=== PATIENT | male | born 2000 | race Caucasian/White ===

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

== ENCOUNTER 2018-01-02 11:58 | Emergency (ER) | payer OTHER, MEDICAID, SELFPAY ==
[2018-01-02 11:58] VITALS: BP 126/85; PULSE 110; RESP 16; TEMP 36.7; O2SAT 97; BMI 22.2
[2018-01-02] MEDS: Morphine 4 MG/ML Syringe IV (13:52)
[2018-01-02] MEDS: Ondansetron 4 MG/2 ML Vial IV (13:52)
[2018-01-02] MEDS: 0.9% Normal Saline 1,000 ML 999 ML IV ×3 (13:52→15:45)
[2018-01-02 13:55] LABS: Absolute Lymphocyte Count 1.58 X10^3/ul (0.83-4.51); Absolute Neutrophil Count 9.6 X10^3/uL (2.0-7.7); Basophil# 0.01 X10^3/uL; Basophil% 0.1 % (0-1); Eosinophil# 0.04 X10^3/uL; Eosinophils% 0.3 % (0-5); Hematocrit 46.2 % (40-54); Hemoglobin 15.3 g/dl (13.0-16.5); Lymphocyte # 1.58 X10^3/ul (4.0); Lymphocyte % 12.8 % (19-41); Mean Corp Hgb Conc 33.1 g/gl (32-36); Mean Corpuscular Hgb 26.8 pg (27.0-32.0); Mean Corpuscular Volume 81.1 fL (80-94); Mean Platelet Vol. 9.7 fl (6.2-12.0); Monocyte# 1.03 X10^3/uL; Monocyte% 8.4 % (0-10); Neutrophil # 9.62 X10^3/uL (2.7-7.7); Neutrophil % 78.2 % (47-70); POSITIVE COUNT NO; POSITIVE DIFFERENTIAL NO; POSITIVE MORPHOLOGY NO; Platelet Count 332 K/mm3 (150-450); RBC Distribution Width CV 13.4 % (11.6-14.6); RBC Distribution Width SD 39.6 fl (35.1-43.9); White Blood Count 12.3 K/mm3 (4.4-11.0)
[2018-01-02 14:02] LABS: Anion Gap 9 (5-15); BUN 13 mg/dL (7-18); BUN/Creat Ratio 12.3 RATIO (10-20); Calcium,Total 9.4 mg/dL (8.5-10.1); Chloride 97 mmol/L (98-107); Creatinine, Serum 1.06 mg/dL (0.70-1.30); EST Glomerular Filtration Rate 95 mL/min (>60); Est Glom Filt Rate - Afr Amer 115 mL/min (>60); Estimated Creatinine Clearance 117.96 ml/min; Glucose 88 mg/dL (74-106); Sodium Level 138 mmol/L (136-145)
--- NOTE | 2018-01-02 14:47 | ED.VISSUMM ---
- ER Visit Summary Date of Service: 01/02/18 Chief Complaint: Cannot take medicine History of Present Illness: The patient is a 17 M with nausea and vomiting. He is coughing up liquids and his medication at home. He is postop day 5 from a tonsillectomy. No fevers. No bleeding. No other issues. Physical Examination: Afebrile and vital signs unremarkable except for heart rate of 110. No acute distress but appears uncomfortable. HEENT exam unremarkable except for postoperative tonsillectomy changes. No bleeding noted. Airway intact. No stridor. Lungs clear. Heart regular. Skin appears normal. Test Results: White count 12.3 and chloride 97. Emergency Department Course and Treatment: Fluids, morphine, Zofran. On reevaluation he was resting comfortably. No vomiting or other symptoms. Patient was discussed with Dr. Lara. He advised that postop day 5 can be very painful and the risk of bleeding is high. Patient should be hydrated generously. I ordered an additional 2 L of fluids. Patient may be discharged after that if he has no further issues, bleeding, or any other problems. Treatment Plan: As above Disposition: Discharged Impression: 1. Nausea vomiting This note was generated with [employer] dictation software. It may contain incorrect words, spelling, and punctuation that were not noted in review of the chart prior to signing ED Disposition - Plan for ED Patient: Chief Complaint: Nausea/Vomiting Referrals: Catrachito Rios MD [Primary Care Provider] -
--- NOTE | 2018-01-02 14:50 | ED.DEP ---
ED Disposition - Plan for ED Patient: Chief Complaint: Nausea/Vomiting Instructions: ED Nausea Vomiting Referrals: Miguel Lara MD [STAFF PHYSICIAN] -
[2018-01-02 16:29] VITALS: BP 118/67; PULSE 105; RESP 18; O2SAT 99
== END 2018-01-02 16:30 | disposition home or self-care (01) ==
LOC: ED 13:38
PROVIDERS: Emergency Provider Emergency Medicine
DX: R11.2 Nausea with vomiting, unspecified (principal); E86.0 Dehydration; Z98.890 Other specified postprocedural states; Z72.0 Tobacco use
CPT/HCPCS: 80048; 85025; 96361; 96374; 96375; 99282; J7030; A4216; J2405

== ENCOUNTER 2021-02-07 10:18 | Emergency (ER) | payer SELFPAY ==
[2021-02-07 10:19] VITALS: BP 141/92; PULSE 105; RESP 16; TEMP 35.6; O2SAT 98; BMI 22.4
--- NOTE | 2021-02-07 10:44 | RAD_ITS ---
STUDY: X-RAY - MANDIBLE (COMPLETE) REASON FOR EXAM: Male, 20 years old. pain, disslocation TECHNIQUE: 2 view(s) of the mandible were obtained. COMPARISON: None. FINDINGS: Normal mandible. Normal visualized right temporomandibular joint. Normal visualized left temporomandibular joint. The remaining visualized osseous structures are normal. The soft tissue structures are unremarkable. RAD/Mandible Less Than 4 Views IMPRESSION: Normal x-ray examination of the mandible. Electronically Signed: Ryan Ramos MD at 11:36 EST Tel , Service support ,
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
[2021-02-07] MEDS: Morphine 4 MG/ML Syringe IV (11:14)
[2021-02-07] MEDS: LORazepam 2 MG/ML Syringe 1 MG IV (11:15)
[2021-02-07] MEDS: Ondansetron 4 MG/2 ML Vial IV (11:15)
[2021-02-07] MEDS: 0.9% Normal Saline 1,000 ML 150 ML IV (11:19)
[2021-02-07 12:20] VITALS: BP 129/88; PULSE 86; RESP 16
[2021-02-07] MEDS: diazePAM 2 MG Tablet 4 MG PO (12:21)
--- NOTE | 2021-02-07 13:38 | CT_ITS ---
STUDY: CT FACIAL BONES WITHOUT CONTRAST REASON FOR EXAM: Male, 20 years old. concert for jaw dislocation RADIATION DOSAGE (If Supplied By Facility): CTDIvol = ( 29.38 ) mGy, DLP = ( 657.65 ) mGycm TECHNIQUE: The patient was scanned in a multi detector CT scanner. Sagittal and coronal images were reconstructed. Individualized dose optimization techniques were used for this CT. COMPARISON: None. FINDINGS: There is anterior dislocation of the mandibular heads bilaterally from the temporal mandibular joint fossa. (For example image 53 series 2). There is no facial fracture. The paranasal sinuses are clear. CT/Sinus/Facial Bone IMPRESSION: Anterior dislocation of the bilateral mandibular heads from the temporomandibular joint fossa. Electronically Signed: Garcia Mena MD at 14:40 EST Tel , Service support ,
[2021-02-07 15:05] VITALS: BP 132/87; BP 145/84; PULSE 71; PULSE 96; RESP 14; RESP 20; O2SAT 100; O2SAT 99
[2021-02-07] MEDS: Propofol 200 MG/20 ML Vial IV BOLUS (15:15)
[2021-02-07 15:25] VITALS: BP 133/75; PULSE 74; RESP 18; O2SAT 99
[2021-02-07 15:40] VITALS: BP 119/73; PULSE 82; RESP 14; O2SAT 96
[2021-02-07 15:50] VITALS: BP 131/87; PULSE 76; RESP 15; O2SAT 99
== END 2021-02-07 16:00 | disposition home or self-care (01) ==
PROVIDERS: Emergency Provider Emergency Medicine
DX: S03.03XA Dislocation of jaw, bilateral, initial encounter (principal); X58.XXXA Exposure to other specified factors, initial encounter; Y93.9 Activity, unspecified; Y92.9 Unspecified place or not applicable; Y99.9 Unspecified external cause status; F17.210 Nicotine dependence, cigarettes, uncomplicated
CPT/HCPCS: 21480; 70100; 70486; 96374; 96375; 99283; J7030; J2405

== ENCOUNTER 2021-06-04 06:34 | Emergency (ER) | payer SELFPAY ==
[2021-06-04 06:35] VITALS: BP 149/87; PULSE 94; RESP 16; TEMP 35.9; O2SAT 99; BMI 25.1
--- NOTE | 2021-06-04 06:47 | CT_ITS ---
EXAM: CT Lumbar Spine Without Intravenous Contrast CLINICAL INDICATION: 21 years old, Male; trauma. pain TECHNIQUE: Helically acquired images were obtained of the lumbar spine without intravenous contrast. 2D reformats were reviewed. This CT exam was performed using one or more of the following dose reduction techniques: automated exposure control, adjustment of the mA and/or kV according to patient size, and/or use of iterative reconstruction technique. This report was created using [employer] report generation technology. RADIATION DOSE: CTDIvol = 14.85 mGy, DLP = 472.47 mGy-cm COMPARISON: None. FINDINGS: Vertebrae: Unremarkable. No fracture. No traumatic subluxation. No discrete lytic or blastic abnormality. Normal alignment. Discs/spinal canal/neural foramina: Unremarkable. Disc heights are preserved. No critical stenosis. Vasculature: Visualized abdominal aorta is not dilated. Lymph nodes: Unremarkable. No retroperitoneal adenopathy. CT/Spine Lumbar without Contrast IMPRESSION: No evidence of acute lumbar spinal fracture or spondylolisthesis. Electronically Signed: Kian Painter MD at 7:19 EDT ,
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
== END 2021-06-04 07:44 | disposition home or self-care (01) ==
PROVIDERS: Emergency Provider Emergency Medicine; Visit Provider Emergency Medicine
DX: M54.50 Low back pain, unspecified (principal); W11.XXXA Fall on and from ladder, initial encounter; Y92.008 Other place in unspecified non-institutional (private) residence as the place of occurrence of the external cause; F17.210 Nicotine dependence, cigarettes, uncomplicated
CPT/HCPCS: 72131; 99282

== ENCOUNTER 2021-11-03 05:40 | Observation (INO) | payer MEDICAID, SELFPAY ==
[2021-11-03 05:41] VITALS: BP 140/78; PULSE 64; RESP 17; TEMP 36.4; O2SAT 97; BMI 25.9
--- NOTE | 2021-11-03 05:53 | CT_ITS ---
EXAM: CT abdomen and pelvis without contrast HISTORY: Kidney Stone TECHNIQUE: No intravenous contrast. A radiation dose optimization technique was used for this scan. COMPARISON: None. LIMITATIONS: None. LOWER CHEST: Normal. LIVER: Normal. GALLBLADDER: Normal. BILE DUCTS: Normal. PANCREAS: Normal. SPLEEN: Normal. ADRENAL GLANDS: Normal. KIDNEYS/URETERS/BLADDER: Normal. AORTA: Normal caliber. BOWEL/MESENTERY: Diverticula are without evidence of diverticulitis. No small bowel obstruction. Possible wall thickening of the distal stomach. APPENDIX: Normal. PERITONEUM: Normal. REPRODUCTIVE ORGANS: Normal. BONES/SOFT TISSUES: No acute fracture. OTHER: None. CONCLUSION: No urinary stones or hydronephrosis. Possible wall thickening of the distal stomach. Query gastritis. Electronically Signed: Jaime Fatima MD at 6:55 EDT , CT/Abdomen/Pelvis without Cont IMPRESSION: undefined
--- NOTE | 2021-11-03 05:54 | EDS_ITS ---
HPI History of Present Illness Chief Complaint: Nausea/Vomiting Informant: patient Narrative Narrative: Presents with constant pain left side abdomen for the last 3 days. Nausea and vomiting for the past 2 days. Unable to keep things down. No bowel movement since Monday. No abdominal surgeries in the past. No history of kidney stones. No urinary symptoms. He does admit to smoking marijuana daily since he was 10 years old. Never had emesis before with marijuana. Reports drinks alcohol every other week. He did drink Monday night. Prior similar symptoms: No PFSH PFSH Medical History Encounter for screening for COVID-19 Home Medications NK 02/07/21 [History Last Taken Unknown] Allergy/AdvReac Type Severity Reaction Status Date / Time meperidine [From Demerol] Allergy Hives Verified 06/04/21 06:37 Surgical History Hx of tonsillectomy Social History Smoking Status: Current every day smoker tobacco type: cigarettes alcohol intake: current alcohol intake frequency: a few times a month Alcohol type: beer ROS ROS ED Constitutional Constitutional ED: Denies chills, fever(s) or sweats Eyes Eyes: Denies change in vision ENT ENT ED: Denies dysphagia or sore throat Cardiovascular Cardiovascular: Denies chest pain, leg edema, palpitations or racing heartbeat Respiratory/Chest Respiratory/Chest: Denies cough, dyspnea or dyspnea on exertion Gastrointestinal Gastrointestinal: Reports abdominal pain, nausea and vomiting; Denies diarrhea Genitourinary Genitourinary ED: Denies dysuria, hematuria or urinary frequency Musculoskeletal Musculoskeletal: Denies back pain, extremity pain or neck pain Integumentary Denies rash or wounds Neurologic Neurologic: Denies headache(s), paresthesias or weakness EXAM Physical Exam Const Vital Signs: 11/03/21 05:41 Temperature 97.6 F L Temperature Source Temporal Pulse Rate 64 Respiratory Rate 17 Blood Pressure 140/78 H Blood Pressure Mean 98 Pulse Ox 97 Oxygen Delivery Method Room Air Positive well nourished and well developed Constitutional Narrative: Nontoxic, mild uncomfortable. General Appearance ED: well developed HEENT Reports moist mucous membranes normocephalic and atraumatic Eyes PERRL, EOMs intact bilaterally and conjunctivae normal General Eye ED: Yes normal appearance of both eyes Neck no lymphadenopathy and supple General: Negative for tenderness Chest Wall Chest: Negative for tenderness Resp normal respiratory effort and normal air movement Effort and Inspection: symmetric chest movement; Negative for respiratory distress Cardio regular rate, regular rhythm and no murmurs Peripheral Pulses: pulses 2+ throughout GI normal to inspection, nondistended, normoactive bowel sounds GI Narrative: Negative Kline's or McBurney's tenderness. Palpation: Negative for guarding or rebound tenderness present Back/Spine no thoracic nor lumbar tenderness Back/Spine Narrative: Left flank tenderness no rash or ecchymosis. Extremity normal to inspection General Extremety ED: Negative for edema or tenderness General Extremity: Negative for edema Neuro oriented x3 and no sensory deficits noted Sensorium / Orientation: awake and alert Skin no rashes or lesions noted and no wounds MDM MDM MDM Narrative Medical decision making narrative: Patient mild uncomfortable tender left side abdomen without guarding or rebound. Abdominal labs were checked, white count 13.3 lipase 859 with normal liver enzymes. Creatinine 1.19. Was given IV fluids morphine and Zofran initially. Still was retching. CT scan significant only for possible thickening gastrum concerning for gastritis. He was given Pepcid and Haldol due to the vomiting. Tox screen was added turning opiates cocaine and THC. He was given morphine prior to urine collection. Labs noting pancreatitis, multiple possible etiology at this time due to drinking alcohol the day before, had had multiple vomiting since yesterday because reactive elevation of his lipase. However with his intr actable symptoms, do feel he will benefit from admission. I spoke with hospitalist Dr. Guillen for admission. Lab Data Attestation: I reviewed the patient's lab results. Labs: Laboratory Results - last 24 hr 11/03/21 11/03/21 11/03/21 05:53 05:53 05:53 WBC 13.3 H RBC 5.55 Hgb 15.0 Hct 46.0 MCV 82.9 MCH 27.0 MCHC 32.6 RDW Std Deviation 40.6 RDW Coeff of [place] 13.4 Plt Count 438 MPV 9.6 Immature Gran % (Auto) 0.300 Neut % (Auto) 73.2 H Lymph % (Auto) 17.6 L [place] % (Auto) 7.3 Eos % (Auto) 1.4 Baso % (Auto) 0.2 Absolute Neuts (auto) 9.7 H Absolute Lymphs (auto) 2.34 Nucleated RBC % 0 Sodium 139 Potassium 3.4 L Chloride 96 L Carbon Dioxide 34.0 H Anion Gap 9 BUN 16 Creatinine 1.19 Estim Creat Clear Calc 109.11 Est GFR (MDRD) Af Amer 97 Est GFR (MDRD) Non-Af 80 BUN/Creatinine Ratio 13.4 Glucose 107 H Calcium 9.3 Total Bilirubin 0.60 Direct Bilirubin 0.13 AST 13 L ALT 33 Alkaline Phosphatase 87 Total Protein 7.9 Albumin 4.1 Globulin 3.8 Lipase 859 H Urine Color Urine Clarity Urine pH Ur Specific [place] Urine Protein Urine Glucose (UA) Urine Ketones Urine Occult Blood Urine Nitrite Urine Bilirubin Urine Urobilinogen Ur Leukocyte Esterase Urine RBC Urine WBC Ur Squamous Epith Cells Urine Bacteria Urine Mucus Urine Opiates Screen Urine Methadone Screen Ur Barbiturates Screen Ur Phencyclidine Scrn Ur Amphetamines Screen MDMA (Ecstasy) Screen U Benzodiazepines Scrn Urine Cocaine Screen U Cannabinoids Screen Ur Drug Screen Comment 11/03/21 11/03/21 06:30 06:30 WBC RBC Hgb Hct MCV MCH MCHC RDW Std Deviation RDW Coeff of [place] Plt Count MPV Immature Gran % (Auto) Neut % (Auto) Lymph % (Auto) [place] % (Auto) Eos % (Auto) Baso % (Auto) Absolute Neuts (auto) Absolute Lymphs (auto) Nucleated RBC % Sodium Potassium Chloride Carbon Dioxide Anion Gap BUN Creatinine Estim Creat Clear Calc Est GFR (MDRD) Af Amer Est GFR (MDRD) Non-Af BUN/Creatinine Ratio Glucose Calcium Total Bilirubin Direct Bilirubin AST ALT Alkaline Phosphatase Total Protein Albumin Globulin Lipase Urine Color Yellow Urine Clarity Clear Urine pH 7.0 Ur Specific [place] 1.010 Urine Protein 15 H Urine Glucose (UA) Normal Urine Ketones Negative Urine Occult Blood Negative Urine Nitrite Negative Urine Bilirubin Negative Urine Urobilinogen 1 H Ur Leukocyte Esterase 25 H Urine RBC 0-5 SEEN Urine WBC 0 SEEN Ur Squamous Epith Cells 0 SEEN Urine Bacteria 1+ Urine Mucus 2+ Urine Opiates Screen POSITIVE H Urine Methadone Screen NEGATIVE Ur Barbiturates Screen NEGATIVE Ur Phencyclidine Scrn NEGATIVE Ur Amphetamines Screen NEGATIVE MDMA (Ecstasy) Screen NEGATIVE U Benzodiazepines Scrn NEGATIVE Urine Cocaine Screen POSITIVE H U Cannabinoids Screen POSITIVE H Ur Drug Screen Comment Radiography Diagnostic Testing: Clinical Impression(s) from Imaging Studies Abdomen/Pelvis CT 11/03/21 05:53 IMPRESSION: undefined Discharge Plan Dx/Rx/DC Orders Clinical Impression: Intractable nausea and vomiting, Polysubstance use disorder, Abdominal pain, Serum lipase elevation Disposition Disposition: Acute Care Hospital [facility] Discharge Date/Time: 11/03/21 08:53
[2021-11-03] MEDS: Morphine 4 MG/ML Syringe IV (05:58)
[2021-11-03] MEDS: Ondansetron 4 MG/2 ML Vial IV (05:58)
[2021-11-03] MEDS: 0.9% Normal Saline 1,000 ML 250 ML IV (05:58)
[2021-11-03 05:59] LABS: Absolute Lymphocyte Count 2.34 X10^3/uL (0.83-4.51); Absolute Neutrophil Count 9.7 X10^3/uL (2.0-7.7); Basophil# 0.03 X10^3/uL; Basophil% 0.2 % (0-1); Eosinophil# 0.19 X10^3/uL; Eosinophils% 1.4 % (0-5); Lymphocyte # 2.34 X10^3/ul (0.83-4.51); Lymphocyte % 17.6 % (19-41); Mean Corp Hgb Conc 32.6 g/dL (32-36); Mean Corpuscular Volume 82.9 fL (80-94); Mean Platelet Vol. 9.6 fl (6.2-12.0); Monocyte# 0.97 X10^3/uL; Monocyte% 7.3 % (0-10); NRBC Flagged by Analyzer 0 % (0-5); Neutrophil # 9.69 X10^3/uL (2.7-7.7); Neutrophil % 73.2 % (47-70); Platelet Count 438 K/mm3 (150-450); RBC Distribution Width CV 13.4 % (11.6-14.6); RBC Distribution Width SD 40.6 fl (35.1-43.9); Red Blood Count 5.55 M/mm3 (4.6-6.2); White Blood Count 13.3 K/mm3 (4.4-11.0)
[2021-11-03 06:36] LABS: Squamous Epithelial Cells - UA 0 SEEN /hpf (0-5); White Blood Cells 0 SEEN /hpf (0-5)
[2021-11-03 06:38] LABS: Anion Gap 9 (5-15); BUN 16 mg/dL (7-18); BUN/Creat Ratio 13.4 RATIO (10-20); Calcium,Total 9.3 mg/dL (8.5-10.1); Chloride 96 mmol/L (98-107); Creatinine, Serum 1.19 mg/dL (0.70-1.30); EST Glomerular Filtration Rate 80 mL/min (>60); Est Glom Filt Rate - Afr Amer 97 mL/min (>60); Estimated Creatinine Clearance 109.11 ml/min; Glucose 107 mg/dL (74-106); Lipase 859 U/L (73-393); Potassium 3.4 mmol/L (3.5-5.1); Sodium Level 139 mmol/L (136-145)
[2021-11-03 06:42] LABS: Color, Urine Yellow (Yellow); Glucose, Dipstick Normal (Normal); Ketone-Dipstick Negative (Negative); Leukocyte Esterase-Dipstick 25 /ul (Negative); Nitrite-Dipstick Negative (Negative); Occult Blood-Urine Negative /ul (Negative); Protein-Dipstick 15 mg/dl (Negative); Urine Bilirubin Dipstick Negative (Negative); Urine Clarity Clear (Clear); Urine Urobilinogen 1 mg/dl (Normal)
[2021-11-03 06:44] LABS: AST(SGOT) 13 U/L (15-37); Alanine Aminotransfer ALT/SGPT 33 U/L (16-61); Albumin, Serum 4.1 g/dL (3.2-5.0); Alkaline Phosphatase 87 U/L (45-117); Bilirubin, Direct 0.13 mg/dL (0.00-0.30); Globulin 3.8 g/dL (2.2-4.2); Protein, Total 7.9 g/dL (6.4-8.2)
[2021-11-03 06:47] LABS: Bacteria 1+ /hpf (None Seen); Mucous, Urine 2+ /hpf (<or=2+); Red Blood Cells-Urine 0-5 SEEN /hpf (0-5)
[2021-11-03] MEDS: Famotidine 200 MG/20 ML MDV 20 MG in 0.9% Normal Saline (Pres. free 8 ML 300 MG IV (07:27)
[2021-11-03] MEDS: Haloperidol Lactate 5 MG/ML Vial 2 MG IV (07:28)
--- NOTE | 2021-11-03 07:28 | NURSING ---
dr kadi marley
--- NOTE | 2021-11-03 07:35 | NURSING ---
MED SURG OBS [place] INTRACTABLE VOMITING, ABB PAIN
[2021-11-03 08:01] LABS: Amphetamine Urine VISTA NEGATIVE (<1000 ng/mL); Barbiturate Urine VISTA NEGATIVE (< 200 ng/mL); Benzodiazepine Urine VISTA NEGATIVE (< 200 ng/mL); Cocaine Urine VISTA POSITIVE (< 300 ng/mL); Ecstacy Urine VISTA NEGATIVE (< 500 ng/mL); Methadone Urine VISTA NEGATIVE (< 300 ng/mL); PCP Urine VISTA NEGATIVE (< 25 ng/mL); THC Urine VISTA POSITIVE (< 50 ng/mL); Vista UDS pH Range 9
[2021-11-03 08:52] VITALS: BP 140/78; PULSE 64; RESP 17; TEMP 36.4; O2SAT 97
[2021-11-03 09:09] VITALS: BMI 25.2
[2021-11-03 09:13] VITALS: BP 116/72; PULSE 76; RESP 18; TEMP 36.8; O2SAT 98
--- NOTE | 2021-11-03 09:16 | HP.PCM.HOS_ITS ---
HPI - General General Date of Admission: 11/03/21 HPI Narrative JOSHUA ALCALA, is a 21 M who presents to the hospital significant nausea and vomiting. He states that he has been having some nausea and vomiting for the last several days, he does smoke marijuana daily and his urine drug test did come back positive for cocaine as well as opiates. This is likely significant reaction to his significant drug use. CT of his abdomen and pelvis is unremarkable. Lipase is a little bit elevated but there is no corresponding change to his pancreas on the CT scan. [facility] Medical History Encounter for screening for COVID-19 Home Medications NK 02/07/21 [History Last Taken Unknown] Allergy/AdvReac Type Severity Reaction Status Date / Time meperidine [From Demerol] Allergy Hives Verified 06/04/21 06:37 Family History no significant family his no significant family history Surgical History Hx of tonsillectomy Social History Smoking Status: Current every day smoker tobacco type: cigarettes alcohol intake: current alcohol intake frequency: a few times a month Alcohol type: beer ROS Constitutional Constitutional: Denies chills, fatigue, fever(s) or malaise Eyes Eyes: Denies blurry vision ENT HEENT: Denies headache(s) or nasal discharge Cardiovascular Cardiovascular: Denies chest pain, dyspnea on exertion or syncope Respiratory/Chest Respiratory/Chest: Denies cough, shortness of breath at rest or shortness of breath with exertion Gastrointestinal Gastrointestinal: Reports abdominal pain, nausea and vomiting; Denies constipation or diarrhea Genitourinary Genitourinary: Denies dysuria Neurologic Neurologic: Denies focal weakness, numbness or tremor(s) Psychiatric Psychiatric: Denies anxiety or depression Vital Signs Vital Signs Vital Signs: 11/03/21 05:41 11/03/21 08:52 Temperature 97.6 F L 97.6 F L Temperature Source Temporal Temporal Pulse Rate 64 64 Respiratory Rate 17 17 Blood Pressure 140/78 H 140/78 H Blood Pressure Mean 98 98 Pulse Ox 97 97 Oxygen Delivery Method Room Air Room Air Weight Weight: 196 lb 8 oz Body Mass Index (BMI) 25.2 Physical Exam Narrative General: Alert, Oriented x3, Cooperative, No apparent distress HEENT: Atraumatic, PERRLA, EOMI, Normocephalic Oral: Moist Mucosa Neck: Supple, No JVD Lungs: Clear to auscultation, Normal air movement, No rhonchi, No wheeze, No rales Cardiovascular: Regular rate, Regular Rhythm, Normal S1, Normal S2, No murmurs Abdomen: Soft, Non Tender, Non-Distended, No Hepato-splenomegaly Extremities: No edema, Capillary Refill Less than 3 Seconds Skin: No rashes, No breakdown Musculoskeletal: No Tenderness to Palpation of Joints or Extremities Neurological: Cranial nerves II-XII grossly intact, Motor Exam 5/5 strength throughout, Sensory exam intact to light touch and pain Psych/Mental Status: Normal Affect, Appropriate Results Lab / Micro Data Result Diagrams: 11/03/21 05:53 11/03/21 05:53 Labs: Laboratory Results - last 24 hr 11/03/21 05:53: Total Bilirubin 0.60, Direct Bilirubin 0.13, AST 13 L, ALT 33, Alkaline Phosphatase 87, Total Protein 7.9, Albumin 4.1, Globulin 3.8 11/03/21 05:53: WBC 13.3 H, RBC 5.55, Hgb 15.0, Hct 46.0, MCV 82.9, MCH 27.0, MCHC 32.6, RDW Std Deviation 40.6, RDW Coeff of Ebony 13.4, Plt Count 438, MPV 9.6, Immature Gran % (Auto) 0.300, Neut % (Auto) 73.2 H, Lymph % (Auto) 17.6 L, [place] % (Auto) 7.3, Eos % (Auto) 1.4, Baso % (Auto) 0.2, Absolute Neuts (auto) 9.7 H, Absolute Lymphs (auto) 2.34, Nucleated RBC % 0 11/03/21 05:53: Sodium 139, Potassium 3.4 L, Chloride 96 L, Carbon Dioxide 34.0 H, Anion Gap 9, BUN 16, Creatinine 1.19, Estim Creat Clear Calc 109.11, Est GFR (MDRD) Af Amer 97, Est GFR (MDRD) Non-Af 80, BUN/Creatinine Ratio 13.4, Glucose 107 H, Calcium 9.3, Lipase 859 H 11/03/21 06:30: Urine Color Yellow, Urine Clarity Clear, Urine pH 7.0, Ur Specific [place] 1.010, Urine Protein 15 H, Urine Glucose (UA) Normal, Urine Ketones Negative, Urine Occult Blood Negative, Urine Nitrite Negative, Urine Bilirubin Negative, Urine Urobilinogen 1 H, Ur Leukocyte Esterase 25 H, Urine RBC 0-5 SEEN, Urine WBC 0 SEEN, Ur Squamous Epith Cells 0 SEEN, Urine Bacteria 1+, Urine Mucus 2+ 11/03/21 06:30: Urine Opiates Screen POSITIVE H, Urine Methadone Screen NEGATIVE, Ur Barbiturates Screen NEGATIVE, Ur Phencyclidine Scrn NEGATIVE, Ur Am phetamines Screen NEGATIVE, MDMA (Ecstasy) Screen NEGATIVE, U Benzodiazepines Scrn NEGATIVE, Urine Cocaine Screen POSITIVE H, U Cannabinoids Screen POSITIVE H , Ur Drug Screen Comment Radiology Impression Abdomen/Pelvis CT 11/03/21 05:53 IMPRESSION: undefined Assessment & Plan Assessment/Plan (1) Intractable nausea and vomiting: PLAN: Plan 1. Intractable nausea and vomiting ? This is likely secondary to his marijuana use and other drug use ? We will provide him with IV fluids as well as antiemetics ? No diarrhea, hyperemesis from marijuana 2. Polysubstance abuse ? Urine drug test with cocaine, marijuana, opiates ? Discussed cessation DVT: Ambulation Charges/Coding Visit Charges OBSV E&M: 77737 Initial observation care L2
[2021-11-03] MEDS: 0.9% Normal Saline 1,000 ML 150 ML IV (09:29)
[2021-11-03] MEDS: Famotidine 20 MG Tablet PO (09:29)
[2021-11-03 14:06] VITALS: BP 114/62; PULSE 59; RESP 18; TEMP 37.2; O2SAT 98
--- NOTE | 2021-11-03 15:09 | DCINST_ITS ---
Discharge Instructions Diet Discharge Diet: [place] diet and Bananas, Rice, Applesauce and [place] Activity Discharge Activity: Return to Normal Activity Dressing / Incision Call your doctor if you observe: Fever of 101 or Higher, Shortness of breath, Dizziness, Fainting spells, Swelling in the ankles, Chest pain and Increased palpitations (irregular heartbeat) Follow Up Care Test Results: Test results from this visit will be discussed in further detail at your follow- up appointment, if applicable. Discharge Plan Admission Admit Date/Time: 11/03/21 07:29 Attending Provider: Thanh Guillen Primary Care Provider: Care Physician,Ros Primary Discharge Orders/Prescriptions Prescriptions: No Action NK Referrals / Follow Up: Care Physician,No Primary [Primary Care Provider] - Disposition Disposition (needs filled in before D/C Order can be placed): Home, Self Care
[2021-11-03 16:20] VITALS: BP 119/70; PULSE 63; RESP 16; TEMP 36.4; O2SAT 97
== END 2021-11-03 16:46 | disposition home or self-care (01) ==
LOC: ED 06:49 → MS3 08:36
PROVIDERS: Admitting Provider Family Medicine; Emergency Provider Emergency Medicine; Visit Provider Family Medicine
DX: R11.2 Nausea with vomiting, unspecified (principal); F14.10 Cocaine abuse, uncomplicated; F11.10 Opioid abuse, uncomplicated; F17.210 Nicotine dependence, cigarettes, uncomplicated; R74.8 Abnormal levels of other serum enzymes; R10.819 Abdominal tenderness, unspecified site; F12.10 Cannabis abuse, uncomplicated
CPT/HCPCS: 74176; 80048; 80076; 80307; 81001; 83690; 85025; 96361; 96374; 96375; 99218; 99284; 99406; J7030; A4216; G0378; J2405; J3490

== ENCOUNTER 2022-03-17 06:39 | Emergency (ER) | payer SELFPAY ==
[2022-03-17 06:40] VITALS: BP 137/94; PULSE 95; RESP 16; TEMP 36.4; O2SAT 98; BMI 26.3
[2022-03-17] MEDS: 0.9% Normal Saline 1,000 ML 999 ML IV (07:26)
[2022-03-17] MEDS: Ondansetron 4 MG/2 ML Vial IV (07:27)
[2022-03-17] MEDS: Ketorolac 30 MG/ML Syringe IV (07:28)
[2022-03-17] MEDS: Diphenoxylate/Atrop 1 Tablet PO (07:29)
--- NOTE | 2022-03-17 07:29 | EX.ED.DYSGE1 ---
HPI History of Present Illness Chief Complaint: General Illness Narrative Narrative: Is a 2-year-old male with past medical history of of polysubstance abuse and reported pancreatitis. He states for the last 1 to 2 days he has felt nauseous and has had loose stool but this morning awoke with lower abdominal discomfort and 3-5 episodes of watery diarrhea. He denies any known sick contacts or any travel outside the country recent antibiotic use livestock exposure camping activities. He denies any known history of ulcer colitis or Crohn's disease. He states that he is concerned about dehydration based on the recurrent bouts of diarrhea as well as infection based on his worsening symptoms and therefore comes in for evaluation [facility] Medical History Encounter for screening for COVID-19 Polysubstance use disorder Home Medications diphenoxylate-atropine 2.5 mg-0.025 mg tablet (Lomotil) 1 tab PO 4X/DAY PRN PRN diarrhea 5 days #20 tabs 03/17/22 [Rx Last Taken Unknown] ondansetron 4 mg disintegrating tablet 4 mg PO TID PRN nausea and vomiting #21 tabs 03/17/22 [Rx Last Taken Unknown] Allergy/AdvReac Type Severity Reaction Status Date / Time meperidine [From Demerol] Allergy Hives Verified 03/17/22 06:43 Surgical History Hx of tonsillectomy Social History Smoking Status: Current every day smoker tobacco type: cigarettes alcohol intake: current alcohol intake frequency: a few times a month Alcohol type: beer ROS ROS ED Constitutional Constitutional ED: Denies chills or fever(s) ENT ENT ED: Denies sore throat Cardiovascular Cardiovascular: Denies chest pain Respiratory/Chest Respiratory/Chest: Denies cough or dyspnea Gastrointestinal Gastrointestinal: Reports abdominal pain, diarrhea and nausea; Denies vomiting Genitourinary Genitourinary ED: Denies dysuria or hematuria Musculoskeletal Musculoskeletal: Denies myalgias Integumentary Denies rash Neurologic Neurologic: Denies headache(s) Hematologic/Lymphatic Hematologic/Lymphatic: Denies easy bleeding or easy bruising EXAM Physical Exam Const Vital Signs: 03/17/22 06:40 03/17/22 06:41 Temperature 97.5 F L Temperature Source Temporal Pulse Rate 95 Respiratory Rate 16 Respiratory Effort Normal Non-Labored Respiratory Pattern Normal Blood Pressure 137/94 H Blood Pressure Mean 108 Pulse Ox 98 Oxygen Delivery Method Room Air Positive well nourished and well developed General Appearance ED: well developed HEENT HEENT Narrative: Mucous membranes are slightly dry and tacky but no secondary changes in the posterior pharynx to suggest infection Eyes PERRL and EOMs intact bilaterally General Eye ED: Negative for scleral icterus Neck supple Resp normal respiratory effort and clear to auscultation bilaterally Cardio regular rate and regular rhythm GI non-distended GI Narrative: Abdomen is soft and nondistended with hyperactive bowel sounds. There is mild pain on palpation in the left lower quadrant without voluntary guarding or rigidity Auscultation: hyperactive bowel sounds Palpation: soft Extremity normal to inspection Neuro oriented x3 and CN's II-XII intact bilaterally Sensorium / Orientation: alert Psych mental status grossly normal Skin no rashes or lesions noted and skin turgor normal General Skin Exam: Negative for jaundice MDM MDM MDM Narrative Medical decision making narrative: Patient presented to the ER afebrile with a soft nonsurgical abdomen. Therefore I felt no need for emergent CT scan. His constellation of symptoms of nausea with loose stool/diarrhea is most consistent with a viral stomach infection. I have low concern for COVID and influenza as a cause and therefore do not feel the need for viral swab. Also has patient has no known history of ulcer colitis or Crohn's disease I doubt a Crohn's flare is occurring at this time. Therefore patient will have basic blood work obtained to rule out underlying electrolyte derangement or acute kidney injury and be given 1 L of fluid as well as Lomotil to stop diarrhea and Toradol for pain. I feel this time that if labs revealed no clinically significant findings and after treatment patient should be safe for discharge as his symptoms indicate he has a viral stomach infection without systemic changes. Patient will be signed out to the day physician Dr. Fisher pending results of laboratory studies Lab Data Labs: Laboratory Results - last 24 hr 03/17/22 07:30 WBC 7.9 RBC 5.42 Hgb 14.5 Hct 44.6 MCV 82.3 MCH 26.8 L MCHC 32.5 RDW Std Deviation 39.5 RDW Coeff of Ebony 13.2 Plt Count 404 MPV 9.6 Immature Gran % (Auto) 0.300 Neut % (Auto) 68.1 Lymph % (Auto) 22.0 [place] % (Auto) 6.0 Eos % (Auto) 2.8 Baso % (Auto) 0.8 Absolute Neuts (auto) 5.4 Absolute Lymphs (auto) 1.75 Nucleated RBC % 0 Discharge Plan Triage Chief Complaint: General Illness ED Provider: Steven Nair Dx/Rx/DC Orders Clinical Impression: Diarrhea, Nausea, Mild dehydration Instructions: ED Gastroenteritis, Viral (Adult) Prescriptions: New ondansetron 4 mg tablet,disintegrating 4 mg PO TID PRN (Reason: nausea and vomiting) Qty: 21 0RF diphenoxylate-atropine [Lomotil] 2.5-0.025 mg tablet 1 tab PO 4X/DAY PRN PRN (Reason: diarrhea) 5 Days Qty: 20 0RF Primary Care Provider: Care Physician,No Primary Referrals: Tamy Reed MD [Med Staff - [employer]] - Care Physician,No Primary [Primary Care Provider] - Activity Restrictions/Additional Instructions: Please keep yourself well-hydrated and use the medication as directed to help control your symptoms. If you have any further concerns please return to the ER for repeat evaluation
[2022-03-17 07:44] LABS: Absolute Lymphocyte Count 1.75 X10^3/uL (0.83-4.51); Absolute Neutrophil Count 5.4 X10^3/uL (2.0-7.7); Basophil# 0.06 X10^3/uL; Basophil% 0.8 % (0-1); Eosinophil# 0.22 X10^3/uL; Eosinophils% 2.8 % (0-5); Hematocrit 44.6 % (40-54); Hemoglobin 14.5 g/dL (13.0-16.5); Lymphocyte # 1.75 X10^3/ul (0.83-4.51); Mean Corp Hgb Conc 32.5 g/dL (32-36); Mean Corpuscular Hgb 26.8 pg (27.0-32.0); Mean Corpuscular Volume 82.3 fL (80-94); Mean Platelet Vol. 9.6 fl (6.2-12.0); Monocyte# 0.48 X10^3/uL; NRBC Flagged by Analyzer 0 % (0-5); Neutrophil # 5.41 X10^3/uL (2.7-7.7); Neutrophil % 68.1 % (47-70); Platelet Count 404 K/mm3 (150-450); RBC Distribution Width CV 13.2 % (11.6-14.6); RBC Distribution Width SD 39.5 fl (35.1-43.9); Red Blood Count 5.42 M/mm3 (4.6-6.2); White Blood Count 7.9 K/mm3 (4.4-11.0)
[2022-03-17 08:00] LABS: AST(SGOT) 14 U/L (15-37); Alanine Aminotransfer ALT/SGPT 28 U/L (16-61); Albumin, Serum 3.9 g/dL (3.2-5.0); Alkaline Phosphatase 79 U/L (45-117); Anion Gap 4 (5-15); BUN 15 mg/dL (7-18); BUN/Creat Ratio 19.6 RATIO (10-20); Bilirubin, Direct 0.11 mg/dL (0.00-0.30); Chloride 109 mmol/L (98-107); Creatinine, Serum 0.76 mg/dL (0.70-1.30); EST Glomerular Filtration Rate 133 mL/min (>60); Est Glom Filt Rate - Afr Amer 161 mL/min (>60); Estimated Creatinine Clearance 169.38 ml/min; Globulin 3.1 g/dL (2.2-4.2); Glucose 112 mg/dL (74-106); Lipase 90 U/L (73-393); Magnesium 2.1 mg/dL (1.6-2.6); Potassium 4.2 mmol/L (3.5-5.1); Sodium Level 138 mmol/L (136-145)
[2022-03-17 08:15] VITALS: BP 124/63; PULSE 71; RESP 15; O2SAT 98
== END 2022-03-17 08:17 | disposition home or self-care (01) ==
PROVIDERS: Emergency Provider Emergency Medicine; Visit Provider Emergency Medicine
DX: R19.7 Diarrhea, unspecified (principal); E86.0 Dehydration; R11.0 Nausea; F17.210 Nicotine dependence, cigarettes, uncomplicated
CPT/HCPCS: 80048; 80076; 83690; 83735; 85025; 96361; 96374; 96375; 99283; J7030; J2405

== ENCOUNTER 2022-08-15 14:08 | Emergency (ER) | payer OTHER, SELFPAY ==
[2022-08-15 14:09] VITALS: BP 120/74; PULSE 96; RESP 16; TEMP 35; O2SAT 98; BMI 26.5
[2022-08-15 15:15] LABS: Absolute Lymphocyte Count 1.85 X10^3/uL (0.83-4.51); Absolute Neutrophil Count 6.9 X10^3/uL (2.0-7.7); Basophil# 0.04 X10^3/uL; Basophil% 0.4 % (0-1); Eosinophil# 0.24 X10^3/uL; Eosinophils% 2.5 % (0-5); Hematocrit 44.2 % (40-54); Hemoglobin 14.7 g/dL (13.0-16.5); Lymphocyte # 1.85 X10^3/ul (0.83-4.51); Mean Corp Hgb Conc 33.3 g/dL (32-36); Mean Corpuscular Hgb 26.8 pg (27.0-32.0); Mean Corpuscular Volume 80.5 fL (80-94); Mean Platelet Vol. 9.6 fl (6.2-12.0); Monocyte# 0.63 X10^3/uL; Monocyte% 6.5 % (0-10); NRBC Flagged by Analyzer 0 % (0-5); Neutrophil # 6.93 X10^3/uL (2.7-7.7); Neutrophil % 71.3 % (47-70); Platelet Count 397 K/mm3 (150-450); RBC Distribution Width CV 13.2 % (11.6-14.6); RBC Distribution Width SD 38.4 fl (35.1-43.9); Red Blood Count 5.49 M/mm3 (4.6-6.2); White Blood Count 9.7 K/mm3 (4.4-11.0)
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
[2022-08-15 15:18] LABS: Mucous, Urine 0 SEEN /hpf (<or=2+)
[2022-08-15 15:23] LABS: Color, Urine Yellow (Yellow); Glucose, Dipstick Normal (Normal); Ketone-Dipstick Negative (Negative); Leukocyte Esterase-Dipstick 500 /ul (Negative); Nitrite-Dipstick Negative (Negative); Occult Blood-Urine 10 /ul (Negative); Protein-Dipstick 30 mg/dl (Negative); Urine Bilirubin Dipstick Negative (Negative); Urine Clarity Clear (Clear); Urine Urobilinogen Normal (Normal)
--- NOTE | 2022-08-15 15:27 | CT_ITS ---
EXAM: CT ABDOMEN AND PELVIS WITHOUT INTRAVENOUS CONTRAST CLINICAL INDICATION: PAIN TECHNIQUE: Helically acquired images were obtained of the abdomen and pelvis without intravenous contrast. This CT exam was performed using one or more of the following dose reduction techniques: automated exposure control, adjustment of the mA and/or kV according to patient size, and/or use of iterative reconstruction technique. RADIATION DOSE: CTDIvol = 8.54 mGy, DLP = 510.15 mGy-cm COMPARISON: 9.7.22 FINDINGS: LOWER THORAX: Unremarkable. Lung bases are clear. No cardiomegaly. No significant pericardial effusion. ABDOMEN: LIVER: Unremarkable. Homogeneous. GALLBLADDER AND BILE DUCTS: Unremarkable. No calcified gallstones. No gallbladder distention or wall edema. No intra- or extrahepatic biliary ductal dilation. PANCREAS: Unremarkable. No focal cystic mass. SPLEEN: Unremarkable. Normal size without focal cystic or solid mass. ADRENALS: Unremarkable. No nodules. KIDNEYS AND URETERS: Unremarkable. Normal renal size and position. No hydronephrosis. STOMACH AND BOWEL: Unremarkable. No stomach or bowel distention. No focal inflammatory change. PELVIS: APPENDIX: The appendix is visualized and is normal. BLADDER: Unremarkable. REPRODUCTIVE: Unremarkable as visualized. No mass. ABDOMEN and PELVIS: INTRAPERITONEAL SPACE: Unremarkable. No ascites or other fluid collection. No free air. BONES/JOINTS: Unremarkable. No suspicious lytic or blastic abnormality. SOFT TISSUES: Umbilical hernia containing fat. VASCULATURE: Unremarkable. Abdominal aorta is non-dilated. LYMPH NODES: Unremarkable. No enlarged lymph nodes. CT/Abdomen/Pelvis without Cont IMPRESSION: No acute findings in the abdomen or pelvis. Electronically Signed: Baljinder Goetz MD at 16:16 EDT ,
[2022-08-15] MEDS: 0.9% Normal Saline 1,000 ML 1000 ML IV (15:40)
[2022-08-15] MEDS: Ketorolac 15 MG/ML Vial IV (15:40)
[2022-08-15] MEDS: Ondansetron 4 MG/2 ML Vial IV (15:40)
[2022-08-15 15:47] LABS: ALB/GLOB Ratio 1.1 RATIO (0.9-2.4); AST(SGOT) 20 U/L (15-37); Alanine Aminotransfer ALT/SGPT 41 U/L (16-61); Albumin, Serum 3.9 g/dL (3.2-5.0); Alkaline Phosphatase 101 U/L (45-117); Anion Gap 6 (5-15); BUN 11 mg/dL (7-18); BUN/Creat Ratio 10.7 RATIO (10-20); Calcium,Total 9.2 mg/dL (8.5-10.1); Chloride 106 mmol/L (98-107); Creatinine, Serum 1.03 mg/dL (0.70-1.30); EST Glomerular Filtration Rate 94 mL/min (>60); Est Glom Filt Rate - Afr Amer 114 mL/min (>60); Estimated Creatinine Clearance 124.98 ml/min; Globulin 3.7 g/dL (2.2-4.2); Glucose 99 mg/dL (74-106); Potassium 4.5 mmol/L (3.5-5.1); Protein, Total 7.6 g/dL (6.4-8.2); Sodium Level 138 mmol/L (136-145)
[2022-08-15 16:08] LABS: Bacteria RARE /hpf (None Seen); Red Blood Cells-Urine 0-5 SEEN /hpf (0-5); Squamous Epithelial Cells - UA 0-5 SEEN /hpf (0-5); White Blood Cells 10-25 SEEN /hpf (0-5)
== END 2022-08-15 17:53 | disposition home or self-care (01) ==
PROVIDERS: Emergency Provider Emergency Medicine; Visit Provider Emergency Medicine
DX: M54.9 Dorsalgia, unspecified (principal); R10.31 Right lower quadrant pain; R11.0 Nausea; G89.29 Other chronic pain; F17.210 Nicotine dependence, cigarettes, uncomplicated; Z79.899 Other long term (current) drug therapy
CPT/HCPCS: 74176; 80053; 81001; 85025; 87086; 87088; 96361; 96374; 96375; 99283; J7030; A4216; J2405

== ENCOUNTER 2022-12-03 22:06 | Emergency (ER) | payer SELFPAY ==
[2022-12-03 22:07] VITALS: BP 134/88; PULSE 82; RESP 15; TEMP 36.6; O2SAT 98; BMI 27.4
--- NOTE | 2022-12-03 22:14 | EX.ED.DYSGE1 ---
HPI History of Present Illness Chief Complaint: General Illness [facility] Medical History Abdominal pain Encounter for screening for COVID-19 Polysubstance use disorder Home Medications ondansetron 4 mg disintegrating tablet 4 mg PO Q8H PRN nausea and vomiting 3 days #9 tabs 12/03/22 [Rx Last Taken Unknown] Allergy/AdvReac Type Severity Reaction Status Date / Time meperidine [From Demerol] Allergy Hives Verified 12/03/22 22:10 Surgical History Hx of tonsillectomy Social History Smoking Status: Current every day smoker tobacco type: e-cigarettes alcohol intake: current alcohol intake frequency: a few times a month Alcohol type: beer EXAM Physical Exam Const Vital Signs: 12/03/22 22:07 12/03/22 22:20 Temperature 97.9 F Temperature Source Temporal Pulse Rate 82 Respiratory Rate 15 Respiratory Effort Normal Non-Labored Short of Breath Respiratory Pattern Normal Blood Pressure 134/88 H Blood Pressure Mean 103 Pulse Ox 98 Oxygen Delivery Method Room Air MDM MDM MDM Narrative Medical decision making narrative: HISTORY OF PRESENT ILLNESS: 22-year-old male here with nausea vomiting, diarrhea he notes body aches and decreased appetite. He further states he has had nausea vomiting and intermittent bouts of diarrhea for the last 4 to 5 days. No sick contacts. Denies any abdominal pain. Denies any urinary complaints. Last bowel was prior to arrival no melena or hematochezia noted. Notes vomiting earlier today. No nausea or vomiting at this time. No chest pain or shortness of breath noted. Notes associated fever and chills and feeling fatigued. REVIEW OF SYSTEMS: Pertinent positives: Nausea, vomiting, diarrhea, fever, chills Pertinent negatives: Chest pain, shortness of breath PHYSICAL EXAM: Nursing triage notes reviewed, Vital signs reviewed Constitutional: please see mdm HENT: MMM Eyes: Pupils equal round and reactive to light, Extraocular muscles intact Neck: No stridor, no JVD, full neck ROM Lungs: Clear to auscultation, No wheezing or rales. No increased work of breathing, no conversational dyspnea, no accessory muscle use, no nasal flaring. No respiratory distress noted Heart: Regular rate and rhythm, No murmurs, No rubs and No gallops, 2+ distal pulses (radial, femoral, posterior tibial) in all extremities Abdomen: Soft, there is no tenderness, rigidity, rebound or guarding, no obvious peritoneal signs, no palpable pulsatile abdominal masses, no auscultated abdominal bruit : No CVAT Extremities: No edema Neuro: No focal neurological deficits, cranial nerves II through XII intact, 5/5 strength in all extremities. Intact sensation to light touch in all extremities, 2+ reflexes bilateral patella tendons. Normal gait. No ataxia. Skin: No rash or lesions noted MEDICAL DECISION MAKING: Chief Complaint: Nausea vomiting, body aches External records reviewed: Outpatient records reviewed: Seen in September 2022 and diagnosed with gastroenteritis. Imaging reviewed: CT scan of the abdomen pelvis from July 2022 shows no acute findings Factors affecting care: Diarrhea Social determinants of health: Current day smoker, alcohol use History obtained from others: none Consults: none MDM Narrative: Patient was hemodynamically stable, afebrile, nontoxic-appearing. On exam was benign and not consistent with acute surgical process (perforation, obstruction, appendicitis). I did give 1 L normal saline, Zofran, Toradol and Pepcid for symptomatic relief. I considered the following differential diagnosis: Dehydration, viral illness such as COVID or flu, anemia, electrolyte disturbance, systemic inflammation, ERICK ALL IMAGES (IF OBTAINED) HAVE BEEN PERSONALLY REVIEWED AND INTERPRETED BY MYSELF. CBC without leukocytosis, severe anemia, no thrombocytopenia. BMP without evidence of significant electrolyte abnormalities, no anion gap, no acute kidney injury. LFTs show no evidence of hepatobiliary pathology. Lipase is wnl indicating no pancreatic inflammation. The amalgamation the patient's history, physical, lab work-up are NOT suggestive of a life-limiting process. Suspect the patient suffering from a viral illness. COVID and flu are pending. They have [facility] E care instructions. He is to return precautions and follow-up instructions as well. The patient and/or family, caregivers express understanding. The patient and/or family, caregivers agrees with the plan. Shared decision making: I will have a discussion with the patient and or visitors regarding risk/benefits of further testing or admission. They will be made aware of of the risk/benefits inherent in this decision they will be given the opportunity to voice understanding. Total critical care time today provided was at least 0 minutes. This excludes separately billable procedures. Critical care time (if documented) is secondary to the patient having high probability of clinically significant/life threatening deterioration in the patient's condition which required my urgent intervention. Impression: 1. Acute nausea and vomiting 2. Diarrhea Dispo: discharge Lab Data Labs: Laboratory Results - last 24 hr 12/03/22 22:55 WBC 10.0 RBC 5.23 Hgb 13.9 Hct 43.3 MCV 82.8 MCH 26.6 L MCHC 32.1 RDW Std Deviation 39.0 RDW Coeff of Ebony 13.0 Plt Count 406 MPV 9.8 Immature Gran % (Auto) 0.300 Neut % (Auto) 67.4 Lymph % (Auto) 24.2 [place] % (Auto) 6.4 Eos % (Auto) 1.3 Baso % (Auto) 0.4 Absolute Neuts (auto) 6.7 Absolute Lymphs (auto) 2.42 Nucleated RBC % 0 Sodium 139 Potassium 3.8 Chloride 106 Carbon Dioxide 28.0 Anion Gap 5 BUN 12 Creatinine 0.91 Estim Creat Clear Calc 145.53 Est GFR (MDRD) Af Amer 131 Est GFR (MDRD) Non-Af 109 BUN/Creatinine Ratio 13.2 Glucose 84 Calcium 9.1 Total Bilirubin 0.50 Direct Bilirubin 0.15 AST 17 ALT 28 Alkaline Phosphatase 72 Total Protein 7.2 Albumin 4.0 Globulin 3.2 Lipase 23 Discharge Plan Triage Chief Complaint: General Illness ED Provider: Florentino Bills Dx/Rx/DC Orders Instructions: ED Diet Vomiting Diarrhea Prescriptions: New ondansetron 4 mg tablet,disintegrating 4 mg PO Q8H PRN (Reason: nausea and vomiting) 3 Days Qty: 9 0RF Primary Care Provider: Care Physician,No Primary Referrals: Chico Busch MD [Med Staff - Medicinal Chemist] - Activity Restrictions/Additional Instructions: Thank you for trusting us with your care today! Please take Tylenol (2 pills, 650 mg), ibuprofen (2 pills, 400 mg) every 6 hours as needed for pain and fever control. Please take Zofran as needed for nausea and vomiting. Please return to the emergency department if your symptoms change or worsen. Please follow with your primary care physician for further outpatient evaluation and management. Disposition Disposition: Home, Self Care
[2022-12-03] MEDS: 0.9% Normal Saline (1000mL) 1,000 ML 1000 ML IV (22:56)
[2022-12-03] MEDS: Ketorolac 15 MG/ML Vial IV (22:56)
[2022-12-03] MEDS: Ondansetron 4 MG/2 ML Vial IV (22:57)
[2022-12-03 23:06] LABS: Absolute Lymphocyte Count 2.42 X10^3/uL (0.83-4.51); Absolute Neutrophil Count 6.7 X10^3/uL (2.0-7.7); Basophil# 0.04 X10^3/uL; Basophil% 0.4 % (0-1); Eosinophil# 0.13 X10^3/uL; Eosinophils% 1.3 % (0-5); Hematocrit 43.3 % (40-54); Hemoglobin 13.9 g/dL (13.0-16.5); Lymphocyte # 2.42 X10^3/ul (0.83-4.51); Lymphocyte % 24.2 % (19-41); Mean Corp Hgb Conc 32.1 g/dL (32-36); Mean Corpuscular Hgb 26.6 pg (27.0-32.0); Mean Corpuscular Volume 82.8 fL (80-94); Mean Platelet Vol. 9.8 fl (6.2-12.0); Monocyte# 0.64 X10^3/uL; Monocyte% 6.4 % (0-10); NRBC Flagged by Analyzer 0 % (0-5); Neutrophil # 6.72 X10^3/uL (2.7-7.7); Neutrophil % 67.4 % (47-70); Platelet Count 406 K/mm3 (150-450); Red Blood Count 5.23 M/mm3 (4.6-6.2)
[2022-12-03] MEDS: Famotidine 200 MG/20 ML MDV 20 MG in 0.9% Normal Saline (Pres. free 8 ML 300 MG IV (23:17)
[2022-12-03 23:24] LABS: AST(SGOT) 17 U/L (15-37); Alanine Aminotransfer ALT/SGPT 28 U/L (16-61); Alkaline Phosphatase 72 U/L (45-117); Anion Gap 5 (5-15); BUN 12 mg/dL (7-18); BUN/Creat Ratio 13.2 RATIO (10-20); Bilirubin, Direct 0.15 mg/dL (0.00-0.30); Calcium,Total 9.1 mg/dL (8.5-10.1); Chloride 106 mmol/L (98-107); Creatinine, Serum 0.91 mg/dL (0.70-1.30); EST Glomerular Filtration Rate 109 mL/min (>60); Est Glom Filt Rate - Afr Amer 131 mL/min (>60); Estimated Creatinine Clearance 145.53 ml/min; Globulin 3.2 g/dL (2.2-4.2); Glucose 84 mg/dL (74-106); Lipase 23 U/L (13-75); Potassium 3.8 mmol/L (3.5-5.1); Protein, Total 7.2 g/dL (6.4-8.2); Sodium Level 139 mmol/L (136-145)
== END 2022-12-03 23:49 | disposition home or self-care (01) ==
PROVIDERS: Emergency Provider Emergency Medicine; Visit Provider Emergency Medicine
DX: R11.2 Nausea with vomiting, unspecified (principal); R19.7 Diarrhea, unspecified; R50.9 Fever, unspecified; F17.290 Nicotine dependence, other tobacco product, uncomplicated
CPT/HCPCS: 80048; 80076; 83690; 85025; 87428; 96361; 96374; 96375; 99283; J7030; A4216; J2405; J3490

== ENCOUNTER 2023-01-10 12:12 | Emergency (ER) | payer SELFPAY ==
[2023-01-10 12:12] VITALS: BP 138/76; PULSE 91; RESP 14; TEMP 36.1; O2SAT 98; BMI 29.0
--- NOTE | 2023-01-10 12:22 | EX.ED.DYSGE1 ---
HPI <SANJEEV Warner - Last Filed: 01/10/23 12:25> History of Present Illness Chief Complaint: Cold Sx Narrative Narrative: 22-year-old male woke up with head pressure, congestion, cough and diarrhea. He tried to call out of work and he said he needed a doctor's note which is why he is here. He does not want any testing and CT take [id number] medications. He has no chest pain or shortness of breath. PFSH <SANJEEV Warner - Last Filed: 01/10/23 12:25> [facility] Medical History Abdominal pain Encounter for screening for COVID-19 Polysubstance use disorder Home Medications ondansetron 4 mg disintegrating tablet 4 mg PO Q8H PRN nausea and vomiting 3 days #9 tabs 12/03/22 [Rx Last Taken Unknown] Allergy/AdvReac Type Severity Reaction Status Date / Time meperidine [From Demerol] Allergy Hives Verified 12/03/22 22:10 Surgical History Hx of tonsillectomy Social History Smoking Status: Current every day smoker tobacco type: e-cigarettes alcohol intake: current alcohol intake frequency: a few times a month Alcohol type: beer ROS <SANJEEV Warner - Last Filed: 01/10/23 12:25> ROS ED ROS Narrative Constitutional: Positive for chills, malaise. ENT: Positive for sore throat, rhinorrhea. CVS: Negative for chest pain. Respiratory: Positive for cough. Negative for shortness of breath. GI: Negative for abdominal pain, nausea, vomiting, diarrhea. Neuro: Positive for headache. Skin: Negative for rash. EXAM <SANJEEV Warner Last Filed: 01/10/23 12:25> Physical Exam Narrative Exam Narrative: CONST: Patient sitting in no acute distress. EYES: Normal inspection. ENT: Normal inspection, moist mucous membranes. Nares clear. NECK: Normal inspection. No meningismus. RESP: No respiratory distress, CTAB. CVS: Regular rate and rhythm, no murmur, no gallop. SKIN: Color normal, no rash, warm, dry, intact. EXTREMITIES: Normal appearance, no pedal edema. NEURO: Oriented x4. PSYCH: Normal affect. Const Vital Signs: 01/10/23 12:12 01/10/23 12:30 01/10/23 12:30 Temperature 96.9 F L Temperature Source Temporal Pulse Rate 91 86 Respiratory Rate 14 18 Respiratory Effort Normal Non-Labored Respiratory Pattern Normal Blood Pressure 138/76 H 132/79 H Blood Pressure Mean 96 96 Pulse Ox 98 96 Oxygen Delivery Method Room Air <Dr. Omega Castro MD - Last Filed: 01/10/23 12:50> Physical Exam Const Vital Signs: 01/10/23 12:12 01/10/23 12:30 01/10/23 12:30 Temperature 96.9 F L Temperature Source Temporal Pulse Rate 91 86 Respiratory Rate 14 18 Respiratory Effort Normal Non-Labored Respiratory Pattern Normal Blood Pressure 138/76 H 132/79 H Blood Pressure Mean 96 96 Pulse Ox 98 96 Oxygen Delivery Method Room Air MDM <SANJEEV Warner - Last Filed: 01/10/23 12:25> MDM MDM Narrative Medical decision making narrative: Patient has symptoms consistent with a viral syndrome. He appears well and nontoxic and is afebrile stable vital signs. His screening exam is unremarkable. He declined viral testing and states he is comfortable taking OTC medications for symptom treatment. He was given a work note and discharged in stable condition. <Dr. Omega Castro MD - Last Filed: 01/10/23 12:50> [facility] Treatment and Re-Evaluation :: I have personally performed a face to face assessment of the patient and have reviewed the RITA Note. I performed a substantive portion of the visit including all aspects of the following. My elliott findings include: History: Patient states he has a little bit of cough congestion and diarrhea. He was having a lot of watery diarrhea this morning so he missed work. Work says he needs a note or has to come into work. He states he does not want a work-up. He just feels like he has a viral illness and he just does not want to lose his job. Exam: Patient awake alert nontoxic. Mucous membranes are still moist. Heart is regular. Lungs are clear. Saturations normal. Abdomen is slightly increased bowel sounds but is soft nondistended nontender Medical Decision Making: This is a young healthy male with no long-term medical problems. His exam shows no acute process. I think it is reasonable that he rests. I agree that I do not think any testing is really needed and he does not want any. Discharge Plan Triage Chief Complaint: Cold Sx ED Midlevel Provider: Manjula Shaw ED Provider: Omega Castro Dx/Rx/DC Orders Clinical Impression: Acute viral syndrome Instructions: ED Viral Syndrome (Adult) Prescriptions: No Action ondansetron 4 mg tablet,disintegrating 4 mg PO Q8H PRN (Reason: nausea and vomiting) 3 Days Qty: 9 0RF Stand Alone Forms: ED Work / School Excuse Primary Care Provider: Care Physician,No Primary Referrals: Care Physician,No Primary [Primary Care Provider] - Activity Restrictions/Additional Instructions: Rest, drink plenty of water, take Tylenol Motrin every 6 hours as needed for pain. You can also take cough medication [id number]. Disposition Disposition: Home, Self Care Discharge Date/Time: 01/10/23 12:38
[2023-01-10 12:30] VITALS: BP 132/79; PULSE 86; RESP 18; O2SAT 96
== END 2023-01-10 12:38 | disposition home or self-care (01) ==
LOC: ED 12:38
PROVIDERS: Emergency Provider Emergency Medicine; Visit Provider Emergency Medicine
DX: B34.9 Viral infection, unspecified (principal); R19.7 Diarrhea, unspecified; R05.9 Cough, unspecified; F17.290 Nicotine dependence, other tobacco product, uncomplicated; J02.9 Acute pharyngitis, unspecified; R51.9 Headache, unspecified
CPT/HCPCS: 99283

== ENCOUNTER 2023-09-06 17:39 | Emergency (ER) | payer SELFPAY ==
[2023-09-06 17:40] VITALS: BP 138/95; PULSE 78; RESP 17; TEMP 36.1; O2SAT 98; BMI 28.5
--- NOTE | 2023-09-06 19:47 | ED.RN ---
PT ANGRY THAT HE IS STILL WAITING LEFT AND SAID HE WAS GOING TO [facility],EMPATHY GIVEN.
== END 2023-09-06 19:46 | disposition left against medical advice (07) ==
LOC: ED 19:52
DX: R51.9 Headache, unspecified (principal); Z53.21 Procedure and treatment not carried out due to patient leaving prior to being seen by health care provider